=== PATIENT | female | born 1960 | race Caucasian/White ===

== ENCOUNTER 2021-10-30 13:16 | Emergency (ER) | payer OTHER ==
[~2021-10-30 13:16] MED LIST: ASPIRIN EC81 MG PO; AUGMENTIN 875-1 EACH PO; BACTRIM DS TAB1 EAC1 PO; LIPITOR40 MG PO; LOPRESSOR25 MG PO; MOTRIN600 MG PO; MUCINEX600 MG PO; NITROQUIK SL0.4 MG SL; PANTOPRAZOLE SO40 MG PO
[2021-10-30 14:37] LABS: BILIRUBIN NEGATIVE (NEGATIVE); BLOOD 2+ Ery/uL (NEGATIVE); CLARITY CLEAR (CLEAR); COLOR YELLOW (YELLOW); GLUCOSE (U) NORMAL (NORMAL); LEUKOCYTES NEGATIVE Leu/uL (NEGATIVE); NITRITE NEGATIVE (NEGATIVE); PROTEIN NEGATIVE (NEGATIVE); UROBILINOGEN 0.2 mg/dL (0.2-1.0); pH 6.5 (5.0-9.0)
[2021-10-30 14:59] LABS: BACTERIA TRACE; URINARY WBC RARE
[2021-10-30 15:33] LABS: BASOPHIL 1.1 % (0-2); EOSINOPHIL 0.2 % (0-5); HGB 13.5 g/dl (12.5-16.0); LYMPHOCYTE 11.1 % (15-48); MCH 33.3 pg (25.0-31.0); MCHC 34.6 g/dL (32.0-36.0); MCV 96.3 fL (78.0-100.0); MONOCYTE 8.8 % (0-12); MPV 8.8 fL (6.0-9.5); NEUTROPHIL 78.6 % (41-80); NRBC 0; PLT 258 K/uL (150-400); RBC 4.05 M/uL (4.20-5.40); WBC 8.3 K/uL (4.0-10.5)
[2021-10-30 15:41] LABS: INR 1.05 (0.9-1.2); PROTHROMBIN TIME 13.1 SECONDS (11.8-13.4); PTT 29.2 SECONDS (24.4-34.7)
[2021-10-30 15:58] LABS: BILIRUBIN - TOTAL 0.5 mg/dL (0.2-1.0); BUN/CREAT RATIO (CALC) 16.4 RATIO; CREATININE 0.61 mg/dL (0.51-0.95); GLOBULIN (CALCULATION) 3.3 g/dL; TOTAL PROTEIN 7.3 g/dL (6.4-8.2)
[2021-10-30 16:05] LABS: CORONAVIRUS 2019 SARS-COV-2 NEGATIVE (NEGATIVE); INFLUENZA A NAA NEGATIVE (NEGATIVE)
== END 2021-10-31 03:03 | disposition other institution (70) ==
LOC: FER 13:16
PROVIDERS: Emergency Medicine
DX: I20.0 Unstable angina (principal); I10 Essential (primary) hypertension; J44.9 Chronic obstructive pulmonary disease, unspecified; F17.200 Nicotine dependence, unspecified, uncomplicated; Z88.5 Allergy status to narcotic agent; Z91.040 Latex allergy status; Z20.822 Contact with and (suspected) exposure to COVID-19
CPT/HCPCS: 36415; 71045; 80053; 81001; 82553; 84484; 85025; 85610; 85730; 93005; U0002